=== PATIENT | female | born 1950 | race Caucasian/White ===

== ENCOUNTER 2016-11-25 12:39 | Day surgery (SDC) | payer MEDICARE, OTHER ==
[2016-11-24 09:03] VITALS: BP 157/86
[~2016-11-25] VITALS: Ht 177.8 cm; Wt 225.0 kg
[~2016-11-25 12:39] MED LIST: ALBU8.5H3 INH; AMLO5TAB2 PO; CHOL10003 PO; GLUC-88 PO; HYDR12.53 PO; RALO60TA PO; TELM80TA PO; TRAM-28 PO
[2016-11-25] MEDS ORDERED: LACTATED RINGERS 1,000 ML IV SCH (13:07)
[2016-11-25 13:10] VITALS: BP 157/86
[2016-11-25] MEDS ORDERED: LIDOCAINE 1%, 2ML ONE (13:18)
[2016-11-25] MEDS ORDERED: MIDAZOLAM 1 MG/ML, 2ML ONE ×2 (14:31)
[2016-11-25] MEDS ORDERED: FENTANYL PF 250 MCG/5ML ONE ×2 (14:31)
[2016-11-25] MEDS ORDERED: SUCCINYLCHOLINE 20 MG/ML, 10ML ONE (14:44)
[2016-11-25] MEDS ORDERED: PROPOFOL 10 MG/ML, 20ML ONE (14:44)
[2016-11-25] MEDS ORDERED: ONDANSETRON 2MG/ML, 2ML ONE (14:44)
[2016-11-25] MEDS ORDERED: METOCLOPRAMIDE 5 MG/ML, 2ML ONE (14:44)
[2016-11-25] MEDS ORDERED: MEPERIDINE/PF 25MG/0.5ML IVPush PRN (15:30)
[2016-11-25] MEDS ORDERED: PROMETHAZINE 25 MG/ML, 1ML IV PRN (15:30)
[2016-11-25] MEDS ORDERED: hydrALAzine 20 MG/ML, 1ML IV PRN (15:30)
[2016-11-25] MEDS ORDERED: FENTANYL PF 100 MCG/2ML IV PRN (15:30)
[2016-11-25] MEDS ORDERED: ALBUTEROL SULFATE 2.5 MG/3 ML NPPB PRN (15:30)
[2016-11-25] MEDS ORDERED: HYDROmorphone 1 MG/ML, 1ML IV PRN (15:30)
[2016-11-25] MEDS ORDERED: ACETAMINOPHEN 325 MG TABLET PO PRN (15:30)
[2016-11-25] MEDS ORDERED: OXYcodone 5 MG/5 ML ORAL.SOL UDC PO PRN (15:30)
[2016-11-25] MEDS ORDERED: ONDANSETRON 2MG/ML, 2ML IVPush PRN (15:30)
[2016-11-25] MEDS ORDERED: LABETALOL 5MG/ML, 20ML IV PRN (15:30)
[2016-11-25] MEDS ORDERED: HYDROmorphone 2 MG/ML, 1ML ONE (15:45)
[2016-11-25] MEDS ORDERED: HYDROcodone/APAP 5/325 TABLET PO PRN (17:00)
[2016-11-25] MEDS ORDERED: FENTANYL PF 100 MCG/2ML ONE (17:00)
[2016-11-25] MEDS ORDERED: ACETAMINOPHEN 650 MG/20.3 ML UDC ONE (17:00)
[2016-11-25] MEDS ORDERED: OXYcodone 5 MG/5 ML ORAL.SOL UDC ONE (17:00)
[2016-11-25] MEDS ORDERED: ALBUTEROL SULFATE 2.5 MG/3 ML ONE (18:00)
== END 2016-11-25 19:50 | disposition home or self-care (01) ==
LOC: OUT 12:39
PROVIDERS: ATTEND Urology
DX: N20.1 Calculus of ureter (principal); Z88.6 Allergy status to analgesic agent; Z91.018 Allergy to other foods; E66.01 Morbid (severe) obesity due to excess calories; Z68.45 Body mass index [BMI] 70 or greater, adult; I10 Essential (primary) hypertension; G47.33 Obstructive sleep apnea (adult) (pediatric); J45.909 Unspecified asthma, uncomplicated; K21.9 Gastro-esophageal reflux disease without esophagitis; E78.00 Pure hypercholesterolemia, unspecified; Z98.84 Bariatric surgery status
CPT/HCPCS: 52352; 82360; 88300; 93005; 94640; C1758; C1769; J0330; J1170; J2250; J2405; J2704; J2765; J3010; J7120